=== PATIENT | male | born 1970 | race Caucasian/White ===

== ENCOUNTER 2019-11-12 19:28 | Emergency (ER) | payer MEDICARE, MEDICAID ==
--- NOTE | 2019-11-12 19:33 | ED Physician Documentation ---
PD HPI HEAD INJURY - Stated complaint Stated Complaint: FALL, HIT HEAD - History obtained from History obtained from: Patient - History of Present Illness Mechanism of head injury: Fell Timing - onset: Last night Pain level now: 7 Location of injury: Back Associated symptoms: Neck pain. No: LOC, AMS, Amnesia, Nausea / vomiting, Paresthesias, Ear drainage Symptoms improve with: Nothing Symptoms worsen with: Other (neck/back pain worse with movement) Contributing factors: No: Anticoagulated, Intoxicated Recently seen: Not recently seen - Additional information Additional information: patient says he fell off a log last night, falling backwards and struck his head on the ground, sustaining a scalp laceration. He presents to ED tonight due to worsening neck and upper/mid back pain. UTD on tetanus Review of Systems Eyes: reports: Reviewed and negative Cardiac: reports: Reviewed and negative Respiratory: reports: Reviewed and negative GI: reports: Reviewed and negative : denies: Unable to Void, Incontinent Skin: reports: Laceration (s) Musculoskeletal: reports: Neck pain, Back pain Neurologic: reports: Head injury. denies: Focal weakness, Numbness, Headache, LOC PD PAST MEDICAL HISTORY - Past Medical History Past Medical History: No - Past Surgical History Past Surgical History: Yes Ortho: Hip replacement - Present Medications Home Medications: Ambulatory Orders Medication Instructions Recorded Confirmed Hydrocodone/Acetaminophen [[place] 1 each PO Q6H PRN #12 tablet 05/29/16 5-325 Tablet] Naproxen 375 mg PO BID #20 tablet 05/29/16 Cyclobenzaprine [Flexeril] 10 mg PO TID PRN #20 tablet 11/12/19 Ibuprofen [Motrin] 600 mg PO Q6H PRN #20 tab 11/12/19 - Allergies Allergies/Adverse Reactions: Allergies Allergy/AdvReac Type Severity Reaction Status Date / Time No Known Drug Allergies Allergy Verified 05/29/16 10:26 - Social History Does the pt smoke?: Yes Smoking Status: Current every day smoker Does the pt drink ETOH?: No Does the pt have substance abuse?: No - Immunizations Immunizations are current?: Yes PD ED PE NORMAL - Vitals Vital signs reviewed: Yes - General General: Alert and oriented X 3, No acute distress, Well developed/nourished - HEENT HEENT: PERRL, EOMI, Moist mucous membranes - Neck Neck: Supple, no meningeal sign, No bony TTP - Cardiac Cardiac: RRR, No murmur - Respiratory Respiratory: No respiratory distress, Clear bilaterally - Back Back: No spinal TTP - Extremities Extremities: No deformity PD ED PE EXPANDED - HEENT HEENT Visual: 1 - laceration (superficial linear laceration without bony tenderness. no active bleeding) Results - Vitals Vitals: Vital Signs - 24 hr 11/12/19 11/12/19 19:33 19:39 Temperature 36.6 C Heart Rate 110 H 110 H Respiratory 16 16 Rate Blood Pressure 130/83 H 135/65 H O2 Saturation 96 97 Oxygen O2 Source Room air PD MEDICAL DECISION MAKING - ED course Complexity details: considered differential, d/w patient ED course: scalp laceration that is approximately 24 hours old; after cleaning, it does not separate such that repair (sutures, shannen, adhesive) are indicated or of likely benefit. Additionally, patient tells me he would not want wound repair anyway. He c/o neck and upper back pain. There is no tenderness on exam, and he requests ibuprofen (given, along with flexeril which I recommended). Departure - Departure Disposition: 01 Home, Self Care Clinical Impression: Fall, Scalp laceration, Neck sprain Condition: Good Instructions: ED Laceration Small Superf No Sutr, ED Sprain Strain Neck Prescriptions: Cyclobenzaprine [Flexeril] 10 mg PO TID PRN #20 tablet PRN Reason: Spasms Ibuprofen [Motrin] 600 mg PO Q6H PRN #20 tab PRN Reason: Pain Discharge Date/Time: 11/12/19 20:22
[2019-11-12 19:39] VITALS: BP 135/65
[2019-11-12] MEDS: CYCLOBENZAPRINE 10 MG TABLET PO STA (20:13)
[2019-11-12] MEDS: IBUPROFEN 600 MG TABLET PO STA (20:13)
== END 2019-11-12 20:22 | disposition home or self-care (01) ==
LOC: ED 19:28
DX: S01.01XA Laceration without foreign body of scalp, initial encounter (principal); S13.9XXA Sprain of joints and ligaments of unspecified parts of neck, initial encounter; M54.6 Pain in thoracic spine; W17.89XA Other fall from one level to another, initial encounter; Y93.01 Activity, walking, marching and hiking; Y92.832 Beach as the place of occurrence of the external cause; F17.200 Nicotine dependence, unspecified, uncomplicated
CPT/HCPCS: 99282; 99284; A9270

== ENCOUNTER 2019-11-25 10:02 | Outpatient (CLI) | payer MEDICARE, MEDICAID ==
[2019-11-25 12:29] LABS: BASOPHILS # (AUTO) 0.1 10^3/uL (0.0-0.1); BASOPHILS % (AUTO) 0.7 %; EOSINOPHILS # (AUTO) 0.2 10^3/uL (0.0-0.7); EOSINOPHILS % (AUTO) 2.7 %; HGB - HEMOGLOBIN 14.4 g/dL (14.0-18.0); LYMPHOCYTES # (AUTO) 3.2 10^3/uL (1.5-3.5); LYMPHOCYTES % (AUTO) 40.2 %; MEAN CORPUSCULAR HEMOGLOBIN 28.6 pg (27.0-31.0); MEAN CORPUSCULAR HGB CONC 31.6 g/dL (32.0-36.0); MEAN CORPUSCULAR VOLUME 90.5 fL (80.0-94.0); MONOCYTES # (AUTO) 0.7 10^3/uL (0.0-1.0); MONOCYTES % (AUTO) 8.9 %; NEUTROPHILS # (AUTO) 3.8 10^3/uL (1.5-6.6); NEUTROPHILS % (AUTO) 47.1 %; PLT - PLATELET COUNT 385 10^3/uL (130-450); RED BLOOD COUNT 5.04 10^6/uL (4.70-6.10); RED CELL DISTRIBUTION WIDTH 14.2 % (12.0-15.0)
[2019-11-25 12:57] LABS: ALBUMIN 4.4 g/dL (3.2-5.5); ALBUMIN/GLOBULIN RATIO 1.8 (1.0-2.2); BILIRUBIN,TOTAL 0.4 mg/dL (0.2-1.0); TOTAL PROTEIN 6.8 g/dL (6.7-8.2)
== END 2019-11-25 23:59 | disposition home or self-care (01) ==
LOC: LAB.WCP 10:02
PROVIDERS: ATTEND Nurse Practitioner Family
DX: R91.1 Solitary pulmonary nodule (principal)
CPT/HCPCS: 36415; 80053; 85025

== ENCOUNTER 2019-11-26 12:07 | Outpatient (CLI) | payer MEDICARE, MEDICAID ==
[2019-11-26] MEDS ORDERED: IOVERSOL 320 100 ML VIAL IVP ONE ×2 (12:37→16:20)
--- NOTE | 2019-11-26 13:21 | CT Report ---
PROCEDURE: CHEST W INDICATIONS: LUNG NODULE CONTRAST: IV CONTRAST: Optiray 320 ml: 100 PO CONTRAST: *NO PO CONTRAST TECHNIQUE: After the administration of intravenous contrast, 5 mm thick sections acquired from the pulmonary api gt to the posterior costophrenic angles. 7 mm thick coronal MIP reformats were acquired. For radia tion dose reduction, the following was used: automated exposure control, adjustment of mA and/or kV according to patient size. COMPARISON: 11/20/2019 chest radiographs FINDINGS: Image quality: Excellent. Lungs and pleura: No acute air space opacities. No pleural effusions or pneumothorax. Central and peripheral airways are patent and normal in caliber. Mediastinum: Heart size is normal. No pericardial effusion. No mediastinal or hilar adenopathy by size criteria. Thoracic aorta and central pulmonary arteries are normal in size. Esophagus is tamika l in caliber. No hiatal hernia. Bones and chest wall: No suspicious bony lesions. No vertebral body compression fractures. No axil nae or supraclavicular adenopathy by size criteria. Thyroid gland uniform. Abdomen: Visualized upper abdominal solid organs appear normal. Upper abdominal bowel loops are nor mal in caliber. IMPRESSION: Previously questioned pulmonary nodule is not identified by CT, likely artifactual on the comparison chest radiographs. Reviewed by: Cortes Rucker MD on 11/26/2019 1:19 PM PDT Approved by: Cortes Rucker MD on 11/26/2019 1:19 PM PDT Station ID: [id number]
== END 2019-11-26 12:08 | disposition home or self-care (01) ==
LOC: DI 12:07
PROVIDERS: ATTEND Nurse Practitioner Family
DX: R91.1 Solitary pulmonary nodule (principal)
CPT/HCPCS: 71260; Q9967

== ENCOUNTER 2021-03-27 08:00 | Outpatient (CLI) | payer MEDICARE, MEDICAID ==
[2021-03-29 19:02] LABS: FECAL OCCULT BLOOD (FIT) POSITIVE (NEGATIVE)
== END 2021-03-27 23:59 | disposition home or self-care (01) ==
LOC: LAB.WCP 08:00
PROVIDERS: ATTEND Nurse Practitioner
DX: Z12.11 Encounter for screening for malignant neoplasm of colon (principal)
CPT/HCPCS: 82274

== ENCOUNTER 2021-05-17 09:15 | Outpatient (CLI) | payer MEDICARE, MEDICAID ==
--- NOTE | 2021-05-17 10:53 | XRAY Report ---
PROCEDURE: Hip w/Pelvis 2-3V RT INDICATIONS: CHRONIC RIGHT HIP PAIN TECHNIQUE: AP pelvis with lateral view(s) of the right hip(s). COMPARISON: May 29, 2016. FINDINGS: BONES/JOINT: No acute, displaced fracture. Right hip arthroplasty with femoral head seated within the acetabulum. No appreciable ester-hardware lucency to suggest loosening. The sacroiliac joints are patent. SOFT TISSUES: No focal abnormality. IMPRESSION: 1.No acute osseous abnormality of the hip. Reviewed by: Sadiq Giraldo MD on 05/17/2021 10:52 AM [facility] Approved by: Sadiq Giraldo MD on 05/17/2021 10:52 AM [facility] Station ID: [id number]
== END 2021-05-17 23:59 | disposition home or self-care (01) ==
LOC: DI.N 09:15
PROVIDERS: ATTEND Orthopaedic Surgery
DX: M25.551 Pain in right hip (principal); G89.29 Other chronic pain

== ENCOUNTER 2021-05-18 14:56 | Outpatient (CLI) | payer MEDICARE, MEDICAID | END 2021-05-18 14:57 | disposition home or self-care (01) | LOC: LAB.N 14:56 | PROVIDERS: ATTEND Surgery | DX: Z01.812 Encounter for preprocedural laboratory examination (principal); Z12.11 Encounter for screening for malignant neoplasm of colon; Z20.822 Contact with and (suspected) exposure to COVID-19 ==

== ENCOUNTER 2021-05-19 11:41 | Day surgery (SDC) | payer MEDICARE, MEDICAID ==
[2021-05-19] MEDS ORDERED: MIDAZOLAM 2 MG/2 ML VIAL ONE (12:03)
[2021-05-19] MEDS ORDERED: PROPOFOL 500 MG/50 ML 500 MG/50 ML VIAL ONE (12:03)
--- NOTE | 2021-05-19 12:30 | ANESTHESIA ---
Pre-Anesthesia VS, & Labs - Diagnosis screening - Procedure colonoscopy Vital Signs: Temp Pulse Resp BP Pulse Ox 37 C 86 16 120/90 H 100 05/19/21 11:58 05/19/21 11:58 05/19/21 11:58 05/19/21 11:58 05/19/21 11:58 Height: 5 ft 5 in Weight (kg): 52.3 kg Body Mass Index: 19.1 BMI Classification: Healthy weight - NPO >8 hours - Lab Results Lab results reviewed: Yes Home Medications and Allergies Allergies/Adverse Reactions: Allergies Allergy/AdvReac Type Severity Reaction Status Date / Time No Known Drug Allergies Allergy Verified 05/18/21 13:26 Anes History & Medical History - Medical History Cardiovascular: reports: None Pulmonary: reports: None Gastrointestinal: reports: None Urinary: reports: None Musculoskeletal: reports: Chronic back pain Endocrine/Autoimmune: reports: None Skin: reports: None Smoking Status: Current every day smoker - Surgical History Orthopedic: reports: Hip replacement Exam General: Alert, Oriented x3, Cooperative Dental: Poor dentition Mouth Openin Fingerbreadth Neck Mobility: Normal Mallampati classification: II Thyromental Distance: 4-6 cm Respiratory: Lungs clear, Normal breath sounds, No respiratory distress Cardiovascular: Regular rate Neurological: Normal speech Mental/Cognitive Status: Alert/Oriented X3, Normal for patient Cognitive Status: Within normal limits Plan Anesthesia Type: Total IV Consent for Procedure(s) Verified and Reviewed: Yes Code Status: Attempt Resuscitation ASA classification: 2-Mild systemic disease Is this case an emergency?: No
[2021-05-19] MEDS ORDERED: PROPOFOL 200 MG/20 ML VIAL IVP ONE (13:31)
[2021-05-19] MEDS ORDERED: LACTATED RINGERS 1,000 ML IV ONE (14:01)
[2021-05-19 14:21] VITALS: BP 109/80
--- NOTE | 2021-05-19 14:59 | ANESTHESIA POST OP EVALUATION ---
Anesthesia Post Eval - Post Anesthesia Eval Vitals: Last Vital Signs Temp 36.6 C 05/19/21 14:20 Pulse 82 05/19/21 14:20 Resp 16 05/19/21 14:20 BP 109/80 05/19/21 14:20 Pulse Ox 95 05/19/21 14:20 CV Function Including HR & BP: Stable Pain Control: Satisfactory Nausea & Vomiting: Negative Mental Status: Baseline Respiratory Status: Airway Patent Hydration Status: Satisfactory Anesthesia Complications: None
== END 2021-05-19 11:42 | disposition home or self-care (01) ==
LOC: SDS 11:41
PROVIDERS: ATTEND Surgery
DX: Z12.11 Encounter for screening for malignant neoplasm of colon (principal); K57.30 Diverticulosis of large intestine without perforation or abscess without bleeding; F17.210 Nicotine dependence, cigarettes, uncomplicated; Z80.0 Family history of malignant neoplasm of digestive organs
CPT/HCPCS: G0121; J7120

== ENCOUNTER 2021-07-03 08:00 | Outpatient (CLI) | payer MEDICARE, MEDICAID | END 2021-07-03 23:59 | LOC: LAB.N 08:00 | PROVIDERS: ATTEND Family Medicine | DX: R51.9 Headache, unspecified (principal); Z20.822 Contact with and (suspected) exposure to COVID-19 ==

== ENCOUNTER 2021-10-09 18:39 | Outpatient (CLI) | payer MEDICARE, MEDICAID | END 2021-10-09 18:40 | disposition critical access hospital (66) | LOC: EMS 18:39 | DX: S09.90XA Unspecified injury of head, initial encounter (principal); R56.9 Unspecified convulsions; W18.39XA Other fall on same level, initial encounter; Y92.512 Supermarket, store or market as the place of occurrence of the external cause; R00.0 Tachycardia, unspecified | CPT/HCPCS: A0425; A0427 ==

== ENCOUNTER 2021-10-09 18:53 | Emergency (ER) | payer MEDICARE, MEDICAID ==
--- NOTE | 2021-10-09 19:02 | ED Physician Documentation ---
PD HPI SEIZURE - Stated complaint Stated Complaint: SEIZURE - History obtained from History obtained from: Patient, EMS - Additional information Additional information: 50-year-old gentleman who says he had a single seizure 3 years ago is not on any antiepileptic drugs. Tonight he was shopping at [employer] and reportedly had a seizure. Was found on the ground twitching with a prolonged postictal period. He says he feels fine now. No headache. He says he did not use alcohol. Review of Systems Ten Systems: 10 systems reviewed and negative Constitutional: denies: Fever, Chills, Fatigue Eyes: denies: Loss of vision, Decreased vision, Photophobia Cardiac: reports: Reviewed and negative Respiratory: reports: Reviewed and negative PD PAST MEDICAL HISTORY - Past Medical History Cardiovascular: None Respiratory: None Endocrine/Autoimmune: None GI: None : None HEENT: None Psych: None Musculoskeletal: Chronic back pain Derm: None - Past Surgical History Past Surgical History: Yes Ortho: Hip replacement - Present Medications Home Medications: Ambulatory Orders Medication Instructions Recorded Confirmed No Known Home Medications 10/09/21 10/09/21 - Allergies Allergies/Adverse Reactions: Allergies Allergy/AdvReac Type Severity Reaction Status Date / Time No Known Drug Allergies Allergy Verified 10/09/21 19:01 - Social History Does the pt smoke?: Yes Smoking Status: Current every day smoker Does the pt drink ETOH?: No Does the pt have substance abuse?: No - Immunizations Immunizations are current?: Yes PD ED PE NORMAL - Vitals Vital signs reviewed: Yes - General General: Alert and oriented X 3, No acute distress - HEENT HEENT: PERRL, EOMI - Neck Neck: Supple, no meningeal sign, No bony TTP - Cardiac Cardiac: RRR, No murmur - Respiratory Respiratory: No respiratory distress, Clear bilaterally - Abdomen Abdomen: Soft, Non tender - Back Back: No CVA TTP, No spinal TTP - Derm Derm: Normal color, Warm and dry - Extremities Extremities: No edema, No calf tenderness / cord - Neuro Neuro: Alert and oriented X 3, wallpaperer 2-12 intact, No motor deficit, No sensory deficit, Normal speech Eye Opening: Spontaneous Motor: Obeys Commands Verbal: Oriented GCS Score: 15 Results - Vitals Vitals: Vital Signs - 24 hr 10/09/21 10/09/21 19:01 19:05 Temperature 36.5 C Heart Rate 108 H 103 H Respiratory 20 12 Rate Blood Pressure 144/96 H 138/97 H O2 Saturation 99 100 Oxygen O2 Source Room air - Labs Labs: Laboratory Tests 10/09/21 10/09/21 10/09/21 19:07 19:07 19:07 WBC 8.9 RBC 5.37 Hgb 15.9 Hct 47.9 MCV 89.2 MCH 29.6 MCHC 33.2 RDW 13.5 Plt Count 350 MPV 9.7 Neut # (Auto) 3.2 Lymph # (Auto) 4.4 H Parker # (Auto) 0.9 Eos # (Auto) 0.2 Baso # (Auto) 0.1 Absolute Nucleated RBC 0.00 Nucleated RBC % 0.0 Sodium 137 Potassium 4.4 Chloride 102 Carbon Dioxide 20 L Anion Gap 15.0 H BUN 17 Creatinine 1.2 Estimated GFR (MDRD) 64 L Glucose 87 Calcium 9.7 Total Bilirubin 0.5 AST 25 ALT 25 Alkaline Phosphatase 69 Total Protein 7.9 Albumin 4.7 Globulin 3.2 Albumin/Globulin Ratio 1.5 Lipase 133 H Prolactin 29.68 Ethyl Alcohol < 5.0 - Rads (name of study) CT of the head without contrast is unremarkable Radiology: EMP read contemporaneously PD MEDICAL DECISION MAKING - ED course ED course: 50-year-old gentleman with history of seizure disorder, he initially states he has had 1 seizure in the past maybe 3 years ago but then says it was probably longer ago. He is not on antiepileptic drugs. He does not use alcohol. Work- up in the emergency department is negative and his mental status and exam are normal. He did have an elevated prolactin level suggesting that this was a true seizure as opposed to a mimic. Neurology and primary care follow-up were advised as well as the discussion of not being able to drive per [place] law. Departure - Departure Disposition: 01 Home, Self Care Clinical Impression: Seizure Condition: Good Record reviewed to determine appropriate education?: Yes Instructions: ED Seizure Recurrent Follow-Up: Mary Solis ARNP [Provider Admit Priv/Credential] - Comments: As discussed, it sounds like he had a seizure tonight, potentially the second in your life. This likely was a true seizure, your prolactin level tonight was 29.68 which is elevated and the level of that lab is usually elevated after a true seizure. CAT scan of your head is unremarkable and the rest of your labs do not show any major issues. You should follow-up with Mary Solis, calling her office on Monday for an appointment. She may want to refer you to a neurologist for further evaluation and treatment. In the interim, and as discussed, you cannot drive per [place] state law for 6 months.
[2021-10-09 19:06] VITALS: BP 138/97
[2021-10-09 19:17] LABS: BASOPHILS # (AUTO) 0.1 10^3/uL (0.0-0.1); BASOPHILS % (AUTO) 1.1 %; EOSINOPHILS # (AUTO) 0.2 10^3/uL (0.0-0.7); HCT - HEMATOCRIT 47.9 % (42.0-52.0); HGB - HEMOGLOBIN 15.9 g/dL (14.0-18.0); LYMPHOCYTES # (AUTO) 4.4 10^3/uL (1.5-3.5); LYMPHOCYTES % (AUTO) 49.8 %; MEAN CORPUSCULAR HEMOGLOBIN 29.6 pg (27.0-31.0); MEAN CORPUSCULAR HGB CONC 33.2 g/dL (32.0-36.0); MEAN CORPUSCULAR VOLUME 89.2 fL (80.0-94.0); MEAN PLATELET VOLUME 9.7 fL (7.4-11.4); MONOCYTES # (AUTO) 0.9 10^3/uL (0.0-1.0); MONOCYTES % (AUTO) 10.5 %; NEUTROPHILS # (AUTO) 3.2 10^3/uL (1.5-6.6); NEUTROPHILS % (AUTO) 36.4 %; PLT - PLATELET COUNT 350 10^3/uL (130-450); RED BLOOD COUNT 5.37 10^6/uL (4.70-6.10); RED CELL DISTRIBUTION WIDTH 13.5 % (12.0-15.0); WHITE BLOOD COUNT 8.9 x10^3/uL (4.8-10.8)
[2021-10-09 19:25] LABS: ALBUMIN 4.7 g/dL (3.2-5.5); ALBUMIN/GLOBULIN RATIO 1.5 (1.0-2.2); ALKALINE PHOSPHATASE 69 IU/L (42-121); ALT ALANINE AMINOTRANSFERASE 25 IU/L (10-60); AST ASPARTATE AMINOTRANSFERASE 25 IU/L (10-42); BILIRUBIN,TOTAL 0.5 mg/dL (0.2-1.0); BUN - BLOOD UREA NITROGEN 17 mg/dL (6-20); CALCIUM 9.7 mg/dL (8.5-10.3); CARBON DIOXIDE - CO2 20 mmol/L (21-32); CHLORIDE 102 mmol/L (101-111); CREATININE 1.2 mg/dL (0.6-1.2); ETOH - ETHANOL < 5.0 mg/dL; GFR - MDRD 64 (>89); GLUCOSE 87 mg/dL (70-100); LIPASE 133 U/L (22-51); POTASSIUM 4.4 mmol/L (3.5-5.0); SODIUM 137 mmol/L (135-145); TOTAL PROTEIN 7.9 g/dL (6.7-8.2)
--- NOTE | 2021-10-09 19:43 | CT Report ---
PROCEDURE: HEAD WO INDICATIONS: seizure TECHNIQUE: Noncontrast 4.5 mm thick angled axial sections acquired from the foramen magnum to the vertex. For r adiation dose reduction, the following was used: automated exposure control, adjustment of mA and/or kV according to patient size. COMPARISON: None. FINDINGS: Image quality: Excellent. CSF spaces: Basal cisterns are patent. No extra-axial fluid collections. Ventricles are normal in size and shape. Brain: No midline shift. No intracranial masses or hemorrhage. Lopez-white matter interface is norm al. Skull and face: Calvarium and visualized facial bones are intact, without suspicious lesions. Sinuses: Visualized sinuses and mastoids are clear. IMPRESSION: Normal for age, source of current symptoms is not seen. No trauma after seizure is found . Reviewed by: Charles Lott MD on 10/09/2021 7:42 PM PDT Approved by: Charles Lott MD on 10/09/2021 7:42 PM PDT Station ID: [id number]
== END 2021-10-09 20:29 | disposition home or self-care (01) ==
LOC: EDUNIT# → ED 18:53
DX: R56.9 Unspecified convulsions (principal); F17.200 Nicotine dependence, unspecified, uncomplicated
CPT/HCPCS: 36415; 70450; 80053; 83690; 84146; 85025; 99284; G0480; 80320

== ENCOUNTER 2022-04-22 08:33 | Emergency (ER) | payer MEDICARE, MEDICAID ==
--- NOTE | 2022-04-22 08:53 | ED Physician Documentation ---
PD HPI URI - Stated complaint Stated Complaint: BODYACHES - Chief complaint Chief Complaint: Resp - History obtained from History obtained from: Patient - History of Present Illness Timing - onset: How many days ago (2) Timing duration: Days (2) Timing details: Abrupt onset, Still present Associated symptoms: Fever, Chills, Nasal congestion, Productive cough, Dyspnea. No: Hemoptysis, NVD Contributing factors: No: Sick contact, COPD / asthma Improves by: No: Medication (cough medication at home.) Worsened by: Activity Similar symptoms before: Has not had sx before Recently seen: Not recently seen Review of Systems Constitutional: reports: Fever, Chills, Myalgias Nose: reports: Congestion Throat: denies: Sore throat Cardiac: denies: Chest pain / pressure Respiratory: reports: Dyspnea, Cough, Wheezing GI: reports: Nausea. denies: Vomiting, Diarrhea Skin: denies: Rash Neurologic: reports: Generalized weakness, Headache. denies: Near syncope, Altered mental status PD PAST MEDICAL HISTORY - Past Medical History Past Medical History: Yes Cardiovascular: None Respiratory: None Neuro: Seizure disorder Endocrine/Autoimmune: None GI: None : None HEENT: None Psych: None Musculoskeletal: Chronic back pain Derm: None - Past Surgical History Past Surgical History: Yes Ortho: Hip replacement - Present Medications Home Medications: Ambulatory Orders Medication Instructions Recorded Confirmed Benzonatate [Tessalon] 100 mg PO TID PRN #20 cap 04/22/22 Nirmatrelvir/Ritonavir [Paxlovid 1 each PO BID 5 Days #1 packet 04/22/22 2X150 mg-100 mg (Eua)] Oseltamivir [Tamiflu] 75 mg PO BID #10 cap 04/22/22 - Allergies Allergies/Adverse Reactions: Allergies Allergy/AdvReac Type Severity Reaction Status Date / Time No Known Drug Allergies Allergy Verified 04/22/22 08:44 - Social History Does the pt smoke?: Yes Smoking Status: Current every day smoker Does the pt drink ETOH?: No Does the pt have substance abuse?: No - Immunizations Immunizations are current?: Yes Immunizations: Other immun not current PD ED PE NORMAL - Vitals Vital signs reviewed: Yes - General General: Alert and oriented X 3, No acute distress, Well developed/nourished - HEENT HEENT: Ears normal, Moist mucous membranes, Pharynx benign - Neck Neck: Supple, no meningeal sign, No adenopathy - Cardiac Cardiac: RRR, No murmur - Respiratory Respiratory: No: Clear bilaterally (some perihilar wheezing noted. No accessory muscle use. No coarse sounds. ) Results - Vitals Vitals: Vital Signs - 24 hr 04/22/22 04/22/22 08:41 10:17 Temperature 36.2 C L Heart Rate 97 96 Respiratory 20 20 Rate Blood Pressure 143/90 H 129/95 H O2 Saturation 99 96 Oxygen O2 Source Room air - Labs Labs: Laboratory Tests 04/22/22 09:02 Nasal Adenovirus (PCR) NOT DETECTED Nasal B. parapertussis DNA (PCR) NOT DETECTED Nasal Coronavir 229E PCR NOT DETECTED Nasal Coronavir HKU1 PCR NOT DETECTED Nasal Coronavir NL63 PCR NOT DETECTED Nasal Coronavir OC43 PCR NOT DETECTED Nasal Enterovir/Rhinovir PCR NOT DETECTED Nasal Influenza A H3 PCR DETECTED A Nasal Influenza B PCR NOT DETECTED Nasal Parainfluen 1 PCR NOT DETECTED Nasal Parainfluen 2 PCR NOT DETECTED Nasal Parainfluen 3 PCR NOT DETECTED Nasal Parainfluen 4 PCR NOT DETECTED Nasal RSV (PCR) DETECTED A Nasal B.pertussis DNA PCR NOT DETECTED Nasal C.pneumoniae (PCR) NOT DETECTED Rik Human Metapneumo PCR NOT DETECTED Nasal M.pneumoniae (PCR) NOT DETECTED Nasal SARS-CoV-2 (PCR) NOT DETECTED PD MEDICAL DECISION MAKING - ED course Complexity details: considered differential (seems likely flu. Consider RSV with the wheezing/cough. less likely covid. PCR testing is taking 1-2 hours currently so d/c with scripts for potential COVID or Flu. To look up results later. ), d/w patient Departure - Departure Disposition: 01 Home, Self Care Clinical Impression: Upper respiratory infection Condition: Stable Record reviewed to determine appropriate education?: Yes Instructions: ED Viral Syndrome Follow-Up: Mary Solis ARNP [Primary Care Provider] - Prescriptions: Nirmatrelvir/Ritonavir [Paxlovid 2X150 mg-100 mg (Eua)] 1 each PO BID 5 Days #1 packet Oseltamivir [Tamiflu] 75 mg PO BID #10 cap Benzonatate [Tessalon] 100 mg PO TID PRN #20 cap PRN Reason: Cough Comments: This seems likely to be one of the viral illnesses going around. It probably sounds more flulike at this point. Main emphasis is on symptom treatment with staying well-hydrated and using Tylenol or ibuprofen or Aleve if needed for pains and fevers. Continue with the cough medicine [id number]. You can add benzonatate/Tessalon if needed for cough suppression. There are a couple of viruses that would have antiviral treatments that may be somewhat beneficial at decreasing your symptoms: First would be influenza a (the flu) for which Tamiflu/oseltamavir can help decrease symptoms. This is taken twice daily for 5 days. Secondly would be COVID for which pack Slo-Bid combination antiviral medicines can also be beneficial. This is also taken twice daily for 5 days. Your respiratory viral PCR test is pending. Depending upon the results, would determine if one of the above antivirals may be useful. Will perhaps try to call you later with the results if its not resulted by the time you are discharged here. Otherwise you can look up the results on the patient portal under the lab section. If you are positive for either flu influenza or COVID, then you could get the appropriate corresponding antiviral medication filled at the pharmacy. Also the benzonatate for cough. If its another virus other than those 2, then no antiviral medication is helpful and just the cough medicine and hydration etc. Discharge Date/Time: 04/22/22 10:20
[2022-04-22] MEDS ORDERED: BENZONATATE 100 MG CAPSULE PO STA (09:02)
[2022-04-22] MEDS ORDERED: NAPROXEN 250 MG TABLET PO STA (09:03)
[2022-04-22 10:04] LABS: B. PARAPERTUSSIS- RESP PCR PAN NOT DETECTED; B. PERTUSSIS- RESP PCR PANEL NOT DETECTED; C. PNEUMONIAE- RESP PCR PANEL NOT DETECTED; CORONAVIRUS 229E-RESP PCR NOT DETECTED; CORONAVIRUS HKU1-RESP PCR NOT DETECTED; CORONAVIRUS NL63-RESP PCR NOT DETECTED; CORONAVIRUS OC43-RESP PCR NOT DETECTED; HUMAN METAPNEUMOVIRUS NOT DETECTED; INFLUENZA A H3- RESP PCR PANEL DETECTED; INFLUENZA B - RESP PCR PANEL NOT DETECTED; M. PNEUMONIAE- RESP PCR PANEL NOT DETECTED; PARAINFLUENZA VIRUS 1 NOT DETECTED; PARAINFLUENZA VIRUS 2 NOT DETECTED; PARAINFLUENZA VIRUS 3 NOT DETECTED; PARAINFLUENZA VIRUS 4 NOT DETECTED; RHINOVIRUS/ENTEROVIRUS NOT DETECTED; RSV- RESP PCR PANEL DETECTED; SARS-CoV-2 -RESP PCR PANEL NOT DETECTED
[2022-04-22 10:20] VITALS: BP 129/95
== END 2022-04-22 10:20 | disposition home or self-care (01) ==
LOC: ED 08:33
DX: J06.9 Acute upper respiratory infection, unspecified (principal); F17.200 Nicotine dependence, unspecified, uncomplicated; Z20.822 Contact with and (suspected) exposure to COVID-19
CPT/HCPCS: 87633; 99282; 99283; A9270

== ENCOUNTER 2022-10-27 17:34 | Emergency (ER) | payer MEDICARE, MEDICAID ==
[2022-10-27 17:46] VITALS: BP 133/91
[2022-10-27 18:00] LABS: BILIRUBIN,URINE NEGATIVE (NEGATIVE); GLUCOSE, URINE (UA) NEGATIVE (NEGATIVE); KETONES,URINE (UA) NEGATIVE (NEGATIVE); LEUKOCYTE ESTERASE, URINE NEGATIVE (NEGATIVE); NITRITE,URINE POSITIVE (NEGATIVE); OCCULT BLOOD,URINE NEGATIVE (NEGATIVE); PH,URINE 5.5 PH (5.0-7.5); PROTEIN,URINE TRACE mg/dL (NEGATIVE); UROBILINOGEN,URINE 1 (NORMAL) E.U./dL (NORMAL)
--- NOTE | 2022-10-27 18:01 | ED Physician Documentation ---
PD HPI MALE - Stated complaint Stated Complaint: MALE - Chief complaint Chief Complaint: UTI - History obtained from History obtained from: Patient - Additional information Additional information: 51-year-old male presents with concerns for malodorous and somewhat cloudy urine over the course of the last month. He has had mild discomfort, no frequency or urgency, no flank pain, no penile discharge or scrotal pain or swelling. He has not had any nausea or vomiting, no fever or chills. He denies any concern for STI. He thought perhaps that he had a urinary tract infection and thought it would go away on its own but it did not therefore he is here today. He has no other concerns today. Review of Systems Constitutional: reports: Reviewed and negative Cardiac: reports: Reviewed and negative Respiratory: reports: Reviewed and negative GI: reports: Reviewed and negative : reports: Other (Malodorous urine) Skin: reports: Reviewed and negative Musculoskeletal: reports: Reviewed and negative Neurologic: reports: Reviewed and negative PD PAST MEDICAL HISTORY - Past Medical History Cardiovascular: None Respiratory: None Neuro: Seizure disorder Endocrine/Autoimmune: None GI: None : None HEENT: None Psych: None Musculoskeletal: Chronic back pain Derm: None - Past Surgical History Past Surgical History: Yes Ortho: Hip replacement - Present Medications Home Medications: Ambulatory Orders Medication Instructions Recorded Confirmed Benzonatate [Tessalon] 100 mg PO TID PRN #20 cap 04/22/22 Nirmatrelvir/Ritonavir [Paxlovid 1 each PO BID 5 Days #1 packet 04/22/22 2X150 mg-100 mg (Eua)] Oseltamivir [Tamiflu] 75 mg PO BID #10 cap 04/22/22 cephALEXin [Keflex] 500 mg PO BID #20 cap 10/27/22 - Allergies Allergies/Adverse Reactions: Allergies Allergy/AdvReac Type Severity Reaction Status Date / Time No Known Drug Allergies Allergy Verified 10/27/22 17:45 - Social History Does the pt smoke?: Yes Smoking Status: Current every day smoker Does the pt drink ETOH?: No Does the pt have substance abuse?: No - Immunizations Immunizations are current?: Yes Immunizations: Other immun not current PD ED PE NORMAL - Vitals Vital signs reviewed: Yes - General General: Alert and oriented X 3, No acute distress, Well developed/nourished - HEENT HEENT: Atraumatic, Moist mucous membranes - Cardiac Cardiac: RRR, No murmur, No gallop, No rub - Respiratory Respiratory: No respiratory distress, Clear bilaterally - Abdomen Abdomen: Normal bowel sounds, Soft, Non tender, Non distended - Male Male : Deferred - Back Back: No CVA TTP, No spinal TTP - Derm Derm: Normal color, Warm and dry, No rash Results - Vitals Vitals: Vital Signs - 24 hr 10/27/22 17:43 Temperature 36.2 C L Heart Rate 104 H Respiratory 16 Rate Blood Pressure 133/91 H O2 Saturation 98 Oxygen O2 Source Room air - Labs Labs: Laboratory Tests 10/27/22 17:46 Urine Color DARK YELLOW Urine Clarity HAZY Urine pH 5.5 Ur Specific [place] >=1.030 H Urine Protein TRACE Urine Glucose (UA) NEGATIVE Urine Ketones NEGATIVE Urine Occult Blood NEGATIVE Urine Nitrite POSITIVE H Urine Bilirubin NEGATIVE Urine Urobilinogen 1 (NORMAL) Ur Leukocyte Esterase NEGATIVE Urine RBC 0-5 Urine WBC 4-5 Ur Squamous Epith Cells NONE SEEN Urine Bacteria Many H Ur Microscopic Review INDICATED Urine Culture Comments INDICATED PD Medical Decision Making - ED course Complexity details: reviewed results, considered differential, d/w patient ED course: 51-year-old male presented with malodorous urine for the last month with no other symptoms. His urinalysis is suggestive of possible infection with positive nitrates, 4-5 WBCs and many bacteria,no other acute findings however. He has no systemic symptoms, no flank pain, and denies any concern for STI. I will therefore treat him for an uncomplicated urinary tract infection with Keflex twice a day for than 10 days. He was advised to increase his oral fluid intake, primarily water, And I reviewed return precautions if you have new or worsening symptoms such as fever, flank pain, penile discharge or scrotal swelling, or if he had any concern for STI as this would not be the treatment for that. Patient states understanding and was discharged home in stable condition. Departure - Departure Disposition: 01 Home, Self Care Clinical Impression: Acute cystitis without hematuria Condition: Good Instructions: ED UTI Cystitis Male Prescriptions: cephALEXin [Keflex] 500 mg PO BID #20 cap Comments: You have signs of possible urinary tract infection on your urinalysis therefore we will treat you with antibiotics as prescribed. Please take entire course and try to stay well-hydrated as well. If you develop flank pain, fever, nausea vomiting or otherwise feel like her symptoms are worsening, please return to the ER.
[2022-10-27 18:04] LABS: CLARITY,URINE HAZY (CLEAR)
[2022-10-27 18:15] LABS: BACTERIA,URINE Many /HPF (None Seen); RBC,URINE 0-5 /HPF (0-5); SQUAMOUS EPITHELIAL CELL,UR NONE SEEN (<= Few)
[2022-10-27 22:57] LABS: CHLAMYDIA TRACHOMATIS DNA NEGATIVE (NEGATIVE); NEISSERIA GONORRHOEAE DNA NEGATIVE (NEGATIVE); TRICHOMONAS VAGINALIS DNA NEGATIVE (NEGATIVE)
== END 2022-10-27 19:10 | disposition home or self-care (01) ==
LOC: ED 17:34
DX: N30.00 Acute cystitis without hematuria (principal); F17.200 Nicotine dependence, unspecified, uncomplicated
CPT/HCPCS: 81001; 81003; 87086; 87181; 87491; 87591; 87661; 99283

== ENCOUNTER 2023-08-10 19:56 | Emergency (ER) | payer MEDICARE, MEDICAID ==
[2023-08-10 21:16] LABS: BASOPHILS # (AUTO) 0.1 10^3/uL (0.0-0.1); BASOPHILS % (AUTO) 0.7 %; EOSINOPHILS # (AUTO) 0.2 10^3/uL (0.0-0.7); EOSINOPHILS % (AUTO) 1.5 %; HCT - HEMATOCRIT 44.9 % (42.0-52.0); HGB - HEMOGLOBIN 15.1 g/dL (14.0-18.0); LYMPHOCYTES # (AUTO) 0.8 10^3/uL (1.5-3.5); LYMPHOCYTES % (AUTO) 7.7 %; MEAN CORPUSCULAR HGB CONC 33.6 g/dL (32.0-36.0); MEAN CORPUSCULAR VOLUME 86.3 fL (80.0-94.0); MEAN PLATELET VOLUME 9.2 fL (7.4-11.4); MONOCYTES # (AUTO) 1.5 10^3/uL (0.0-1.0); MONOCYTES % (AUTO) 14.4 %; NEUTROPHILS % (AUTO) 75.4 %; PLT - PLATELET COUNT 289 10^3/uL (130-450); RED CELL DISTRIBUTION WIDTH 13.2 % (12.0-15.0); WHITE BLOOD COUNT 10.5 x10^3/uL (4.8-10.8)
[2023-08-10 21:20] LABS: BILIRUBIN,URINE NEGATIVE (NEGATIVE); GLUCOSE, URINE (UA) NEGATIVE (NEGATIVE); KETONES,URINE (UA) 40 mg/dL (NEGATIVE); LEUKOCYTE ESTERASE, URINE NEGATIVE (NEGATIVE); NITRITE,URINE NEGATIVE (NEGATIVE); OCCULT BLOOD,URINE NEGATIVE (NEGATIVE); PH,URINE 7.5 PH (5.0-7.5); PROTEIN,URINE NEGATIVE (NEGATIVE); UROBILINOGEN,URINE 1 (NORMAL) E.U./dL (NORMAL)
[2023-08-10 21:23] LABS: CLARITY,URINE CLEAR (CLEAR)
[2023-08-10 21:29] LABS: ALBUMIN 4.6 g/dL (3.2-5.5); ALBUMIN/GLOBULIN RATIO 1.9 (1.0-2.2); BILIRUBIN,TOTAL 0.6 mg/dL (0.2-1.0); CALCIUM 10.2 mg/dL (8.5-10.3); POTASSIUM 4.4 mmol/L (3.5-4.5)
[2023-08-10 21:47] LABS: PLATELET ESTIMATE, MANUAL NORMAL (130-450,000) (NORMAL); PLATELET MORPHOLOGY NORMAL APPEARANCE (NORMAL); RBC MORPHOLOGY (MULTIPLE) NORMAL APPEARANCE (NORMAL)
[2023-08-10 21:48] LABS: DIFFERENTIAL COMMENT MANUAL=AUTO DIFF; WBC MORPHOLOGY (MULTIPLE) 1+ SMUDGE CELLS (NORMAL)
[2023-08-10] MEDS: SODIUM CHLORIDE 0.9% 1,000 ML IV STA (22:11)
[2023-08-10] MEDS: KETOROLAC 30 MG/ML VIAL IVP STA (22:29)
[2023-08-10] MEDS: HYDROmorphone 0.5 MG/0.5 ML SYRINGE IVP STA (22:35)
--- NOTE | 2023-08-10 22:40 | CT Report ---
PROCEDURE: Head WO INDICATIONS: sudden-onset headache TECHNIQUE: Noncontrast 4.5 mm thick angled axial sections acquired from the foramen magnum to the vertex. For r adiation dose reduction, the following was used: automated exposure control, adjustment of mA and/or kV according to patient size. COMPARISON: 10/09/2021. FINDINGS: Image quality: Excellent. CSF spaces: Basal cisterns are patent. No extra-axial fluid collections. Ventricles are normal in size and shape. Brain: No midline shift. No intracranial masses or hemorrhage. Lopez-white matter interface is norm al. Skull and face: Calvarium and visualized facial bones are intact, without suspicious lesions. Sinuses: Visualized sinuses and mastoids are clear. IMPRESSION: No acute intracranial pathology. Reviewed by: Darryl Gill MD on 08/10/2023 10:39 PM PST Approved by: Darryl Gill MD on 08/10/2023 10:39 PM [facility] Station ID: [id number]
--- NOTE | 2023-08-10 22:49 | ED Physician Documentation ---
PD HPI HEADACHE - Stated complaint Stated Complaint: HUGHES/SOA/VOMIT - Chief complaint Chief Complaint: Abd Pain - History obtained from History obtained from: Patient - Additional information Additional information: The patient comes to the emergency department chief complaint of frontal headache, nausea, and vomiting that started this afternoon. He states that it came on gradually and that he does not generally have headaches. He denies any neck pain, fevers, or head injury. He is not anticoagulated. No neurologic symptoms. No other complaints at this time. PD PAST MEDICAL HISTORY - Past Medical History Past Medical History: Yes Cardiovascular: None Respiratory: None Neuro: Seizure disorder Endocrine/Autoimmune: None GI: None : None HEENT: None Psych: None Musculoskeletal: Chronic back pain Derm: None - Past Surgical History Past Surgical History: Yes Ortho: Hip replacement - Present Medications Home Medications: Ambulatory Orders Medication Instructions Recorded Confirmed No Known Home Medications 08/10/23 08/10/23 - Allergies Allergies/Adverse Reactions: Allergies Allergy/AdvReac Type Severity Reaction Status Date / Time No Known Drug Allergies Allergy Verified 08/10/23 20:12 - Social History Does the pt smoke?: Yes Smoking Status: Current every day smoker Does the pt drink ETOH?: Yes ETOH Use: Liquor Does the pt have substance abuse?: No - Immunizations Immunizations are current?: Yes Immunizations: Other immun not current PD ED PE NORMAL - Vitals Vital signs reviewed: Yes - General General: Alert and oriented X 3, No acute distress, Well developed/nourished - HEENT HEENT: Atraumatic, PERRL, EOMI, Moist mucous membranes - Neck Neck: Supple, no meningeal sign - Cardiac Cardiac: RRR, No murmur - Respiratory Respiratory: No respiratory distress, Clear bilaterally - Abdomen Abdomen: Soft, Non tender, Non distended - Derm Derm: Normal color, Warm and dry, No rash - Extremities Extremities: No deformity, No edema - Neuro Neuro: Alert and oriented X 3, 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, No motor deficit, No sensory deficit, Normal speech - Psych Psych: Normal mood, Normal affect Results - Vitals Vitals: Oxygen O2 Source Room air - Labs Labs: Laboratory Tests 08/10/23 08/10/23 08/10/23 21:07 21:07 21:07 WBC 10.5 RBC 5.20 Hgb 15.1 Hct 44.9 MCV 86.3 MCH 29.0 MCHC 33.6 RDW 13.2 Plt Count 289 MPV 9.2 Neut # (Auto) 8.0 H Lymph # (Auto) 0.8 L [place] # (Auto) 1.5 H Eos # (Auto) 0.2 Baso # (Auto) 0.1 Absolute Nucleated RBC 0.00 Band Neuts % (Manual) Not Reportable Abnorm Lymph % (Manual) Not Reportable Nucleated RBC % 0.0 Neutrophils # (Manual) Not Reportable Lymphocytes # (Manual) Not Reportable Monocytes # (Manual) Not Reportable Eosinophils # (Manual) Not Reportable Basophils # (Manual) Not Reportable Differential Comment MANUAL=AUTO DIFF WBC Morphology 1+ SMUDGE CELLS Platelet Estimate NORMAL (130-450,000) Platelet Morphology NORMAL APPEARANCE RBC Morph Micro Appear NORMAL APPEARANCE Sodium 133 L Potassium 4.4 Chloride 101 Carbon Dioxide 25 Anion Gap 7.0 BUN 12 Creatinine 1.0 Estimated GFR (MDRD) 78 L Glucose 104 Calcium 10.2 Total Bilirubin 0.6 AST 14 ALT 16 Alkaline Phosphatase 68 Total Protein 7.0 Albumin 4.6 Globulin 2.4 Albumin/Globulin Ratio 1.9 Lipase 24 Urine Color YELLOW Urine Clarity CLEAR Urine pH 7.5 Ur Specific [place] 1.020 Urine Protein NEGATIVE Urine Glucose (UA) NEGATIVE Urine Ketones 40 H Urine Occult Blood NEGATIVE Urine Nitrite NEGATIVE Urine Bilirubin NEGATIVE Urine Urobilinogen 1 (NORMAL) Ur Leukocyte Esterase NEGATIVE Ur Microscopic Review NOT INDICATED Urine Culture Comments NOT INDICATED - Rads (name of study) head CT Relevant Findings:: Final report received, See rad report (neg) PD Medical Decision Making - ED course Complexity details: reviewed results, re-evaluated patient, considered differential, d/w patient ED course: Patient was treated symptomatically in the emergency department and worked up with a head CT, which was negative. He was feeling much better and had no concerning neurologic deficits or accompanying symptoms to raise concern for a more serious problem. We have discussed symptomatic management at home as well as usual indications for return. Departure - Departure Disposition: 01 Home, Self Care Clinical Impression: Headache Qualifiers: Headache type: unspecified Headache chronicity pattern: acute headache Intractability: not intractable Qualified Code(s): R51.9 - Headache, unspecified Condition: Stable Instructions: ED Cephalgia Unspecified Comments: Your head CT looks good. You have been given pain medication to help with your headache and there is no evidence of an emergent cause of your headache tonight. Please follow-up with your primary doctor as needed. Please be sure you are getting plenty of fluids, as this will help prevent headaches from getting so bad. Forms: PCP List Discharge Date/Time: 08/10/23 23:18
[2023-08-10 23:31] VITALS: BP 127/89; O2SAT 97
== END 2023-08-10 23:18 | disposition home or self-care (01) ==
LOC: ED 19:56
DX: R51.9 Headache, unspecified (principal); F17.200 Nicotine dependence, unspecified, uncomplicated
CPT/HCPCS: 36415; 70450; 80053; 81003; 83690; 85025; 96374; 96375; 99283; 99284; J1170; 81001; 87086